=== PATIENT | male | born 1970 | race Caucasian/White ===

== ENCOUNTER 2020-07-19 11:33 | Emergency (ER) | payer OTHER ==
--- NOTE | 2020-07-19 11:39 | TELE ---
HPI Do you have fever,cough or shortness of breath?: No - General Reason For Visit: COVID 19 TEST History Source: Patient Exam Limitations: No Limitations - History of Present Illness 07/19/20 11:36 49 year old male no pmhx requesting covid testing for travel, denies any symptoms. *Physical Exam - Physical Exam 07/19/20 11:36 Unable to preform PE as videochat is unavailable - Medical Decision Making 07/19/20 11:38 Pt to precede to [facility] for [facility] 19 testing Isolation precautions given Discharge Diagnosis at time of Disposition: COVID-19 - Referrals - Patient Instructions Discharge Instructions: [facility]-Coronavirus Instructions - Discharge Disposition: HOME Condition at time of Disposition: Stable
== END 2020-07-19 11:39 | disposition home or self-care (01) ==
LOC: JVIRT 11:33
DX: Z03.818 Encounter for observation for suspected exposure to other biological agents ruled out (principal)
CPT/HCPCS: 99441-95; C9803; U0003